=== PATIENT | female | born 1990 | race African-American/Black ===

== ENCOUNTER 2016-10-05 22:10 | Emergency (ER) | payer OTHER ==
--- NOTE | 2016-10-05 23:09 | ED Physician Documentation ---
History of Present Illness - Stated complaint Stated Complaint: DIZZINESS/FOOT PX - Chief complaint Chief Complaint: Neuro - History obtained from History obtained from: Patient - History of Present Illness Timing: Other (dizziness: yesterday toe lesion: 1 month) Pain level now: 8 Improved by: remaining still Worsened by: movement - Additonal information Additional information: patient has two c/o tonight: 1) dizziness that is distinctly worse with movement, standing from sitting/ lying position. Episodes started yesterday, last several minutes, associated with nausea 2) painful bump on right second toe x 1 month without trauma Patient recently returned from [place] (five days ago), called [facility] to make an appointment, has not heard back from them. Review of Systems Constitutional: denies: Fever Eyes: reports: Reviewed and negative Ears: denies: Loss of hearing, Ear pain, Drainage/discharge, Tinnitus/ringing Nose: reports: Reviewed and negative GI: reports: Nausea. 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 - Past Surgical History Past Surgical History: Yes General: Appendectomy /CONDUCTOR/ENGINEER: Other - Present Medications Home Medications: Ambulatory Orders Medication Instructions Recorded Confirmed Vitamin [Trinatal Rx 1] 1 each PO DAILY #30 tablet 10/25/14 05/13/15 Ondansetron HCl [Zofran] 4 mg PO DAILY 11/23/14 05/13/15 raNITIdine [Zantac] 150 mg PO DAILY #30 tablet 01/14/15 05/13/15 Albuterol [Ventolin Hfa] 2 puffs INH Q4H PRN #1 inhaler 02/05/15 05/13/15 Albuterol Sulfate [Ventolin Hfa] 2 puffs IH Q4H PRN #1 hfa.aer.ad 05/13/15 Dextromethorphan HBr [Robitussin] 15 mg PO Q6H PRN #20 capsule 05/13/15 Meclizine [Antivert] 25 mg PO Q6H PRN #20 tablet 10/05/16 - Allergies Allergies/Adverse Reactions: Allergies Allergy/AdvReac Type Severity Reaction Status Date / Time anesthesia AdvReac Nausea Uncoded 10/05/16 22:16 - Social History Does the pt smoke?: No Smoking Status: Never smoker Does the pt drink ETOH?: No Does the pt have substance abuse?: No - Immunizations Immunizations are current?: Yes - POLST Patient has POLST: No PD ED PE NORMAL - Vitals Vital signs reviewed: Yes - General General: Alert and oriented X 3, No acute distress, Well developed/nourished - HEENT HEENT: PERRL, EOMI, Other (no nystagmus) - Neck Neck: Supple, no meningeal sign - Neuro Neuro: Alert and oriented X 3, psychosocial rehabilitation counselor 2-12 intact, Normal speech PD ED PE EXPANDED - Extremities Feet visual: 1 - swelling (3-4mm diameter swelling, flesh-colored with central flaking. no fluctuance or discharge. mild tenderness. No erythema) Results - Vitals Vitals: Vital Signs - 24 hr 10/05/16 10/06/16 22:14 00:39 Temperature 36.1 C L Heart Rate 70 80 Respiratory 18 20 Rate Blood Pressure 104/62 104/56 L O2 Saturation 100 99 Oxygen O2 Source Room air - EKG (time done) No standard instances Rate: Rate (enter#) (73) Rhythm: NSR [place]: Normal Intervals: Normal [place], Other (incomplete RBBB) QRS: Normal Ischemia: Normal ST segments PD MEDICAL DECISION MAKING - ED course Complexity details: considered differential, d/w patient Departure - Departure Disposition: 01 Home, Self Care Clinical Impression: Vertigo, [place] of toe Condition: Good Instructions: ED Vertigo Unspecified Follow-Up: Teto Pimentel PA-C [Primary Care Provider] - (Call to arrange for next available appointment) Prescriptions: Meclizine [Antivert] 25 mg PO Q6H PRN #20 tablet PRN Reason: Vertigo Discharge Date/Time: 10/06/16 00:40
[2016-10-05] MEDS ORDERED: MECLIZINE 12.5 MG TABLET PO STA (23:26)
[2016-10-05] MEDS ORDERED: MECLIZINE 12.5 MG TABLET PO ONE (23:49)
[2016-10-06 00:39] VITALS: BP 104/56
== END 2016-10-06 00:40 | disposition home or self-care (01) ==
LOC: ED 22:10
DX: R42 Dizziness and giddiness (principal); L84 Corns and callosities; I45.10 Unspecified right bundle-branch block
CPT/HCPCS: 93005; 99283; A9270

== ENCOUNTER 2017-08-07 13:03 | Emergency (ER) | payer OTHER ==
[2017-08-07 14:16] LABS: BASOPHILS % (AUTO) 0.5 %; EOSINOPHILS # (AUTO) 0.3 10^3/uL (0.0-0.7); EOSINOPHILS % (AUTO) 2.9 %; HGB - HEMOGLOBIN 13.3 g/dL (12.0-16.0); LYMPHOCYTES # (AUTO) 1.7 10^3/uL (1.5-3.5); LYMPHOCYTES % (AUTO) 17.1 %; MEAN CORPUSCULAR HGB CONC 33.3 g/dL (32.0-36.0); MEAN PLATELET VOLUME 7.9 fL (7.9-10.8); MONOCYTES # (AUTO) 0.6 10^3/uL (0.0-1.0); MONOCYTES % (AUTO) 6.3 %; NEUTROPHILS # (AUTO) 7.1 10^3/uL (1.5-6.6); NEUTROPHILS % (AUTO) 73.2 %; PLT - PLATELET COUNT 313 10^3/uL (130-450); RED BLOOD COUNT 4.58 10^6/uL (4.20-5.40); RED CELL DISTRIBUTION WIDTH 14.1 % (12.0-15.0); WHITE BLOOD COUNT 9.7 x10^3/uL (4.8-10.8)
[2017-08-07 14:17] LABS: BILIRUBIN,URINE NEGATIVE (NEGATIVE); GLUCOSE, URINE (UA) NEGATIVE (NEGATIVE); KETONES,URINE (UA) NEGATIVE (NEGATIVE); LEUKOCYTE ESTERASE, URINE NEGATIVE (NEGATIVE); NITRITE,URINE NEGATIVE (NEGATIVE); OCCULT BLOOD,URINE NEGATIVE (NEGATIVE); PROTEIN,URINE NEGATIVE (NEGATIVE); UROBILINOGEN,URINE 0.2 (NORMAL) E.U./dL (NORMAL)
[2017-08-07 14:18] LABS: CLARITY,URINE CLEAR (CLEAR)
[2017-08-07 14:22] LABS: HCG UR QUAL POSITIVE
[2017-08-07 14:28] LABS: ALBUMIN 3.8 g/dL (3.2-5.5); ALBUMIN/GLOBULIN RATIO 1.1 (1.0-2.2); BILIRUBIN,TOTAL 0.7 mg/dL (0.2-1.0); CALCIUM 9.4 mg/dL (8.5-10.3); CREATININE 0.6 mg/dL (0.4-1.0); TOTAL PROTEIN 7.3 g/dL (6.7-8.2)
[2017-08-07] MEDS ORDERED: SODIUM CHLORIDE 0.9% 1,000 ML IV ONE (14:45)
--- NOTE | 2017-08-07 14:56 | ED Physician Documentation ---
PD HPI FEMALE - Stated complaint Stated Complaint: NAUSEA/VOMITTING/HEADACHE - Chief complaint Chief Complaint: Abd Pain - History obtained from History obtained from: Patient, Family - History of Present Illness Timing - onset: Today Timing - duration: Hours Timing - details: Gradual onset, Still present Associated symptoms: Pelvic pain. No: Vaginal bleeding, Vaginal discharge, Dysuria Contributing factors: Similar symptoms before: Diagnosis (early with hyperemesis) Recently seen: Not recently seen - Additional information Additional information: 27-year-old female who is had a positive test about 2 weeks ago has developed vomiting and nausea. She also has some pelvic cramping without bleeding. 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 - Past Surgical History Past Surgical History: Yes General: Appendectomy /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: Other - Present Medications Home Medications: Ambulatory Orders Medication Instructions Recorded Confirmed Vitamin [Trinatal Rx 1] 1 each PO DAILY #30 tablet 10/25/14 05/13/15 Ondansetron HCl [Zofran] 4 mg PO DAILY 11/23/14 05/13/15 raNITIdine [Zantac] 150 mg PO DAILY #30 tablet 01/14/15 05/13/15 Albuterol [Ventolin Hfa] 2 puffs INH Q4H PRN #1 inhaler 02/05/15 05/13/15 Albuterol Sulfate [Ventolin Hfa] 2 puffs IH Q4H PRN #1 hfa.aer.ad 05/13/15 Dextromethorphan HBr [Robitussin] 15 mg PO Q6H PRN #20 capsule 05/13/15 Meclizine [Antivert] 25 mg PO Q6H PRN #20 tablet 10/05/16 Ondansetron Odt [Zofran] 4 mg TL Q6H PRN #10 tablet 06/19/18 - Allergies Allergies/Adverse Reactions: Allergies Allergy/AdvReac Type Severity Reaction Status Date / Time anesthesia AdvReac Nausea Uncoded 10/05/16 22:16 - Social History Does the pt smoke?: No Smoking Status: Never smoker Does the pt drink ETOH?: No Does the pt have substance abuse?: No - Immunizations Immunizations are current?: Yes - POLST Patient has POLST: No PD ED PE NORMAL - Vitals Vital signs reviewed: Yes (normal ) - General General: Alert and oriented X 3, No acute distress, Well developed/nourished - HEENT HEENT: Atraumatic, PERRL, EOMI - Neck Neck: Supple, no meningeal sign - Cardiac Cardiac: RRR, No murmur - Respiratory Respiratory: No respiratory distress, Clear bilaterally - Abdomen Abdomen: Soft, Non tender - Back Back: No CVA TTP, No spinal TTP - Derm Derm: Normal color, Warm and dry, No rash - Extremities Extremities: No deformity, No edema - Neuro Neuro: Alert and oriented X 3, No motor deficit, No sensory deficit, Normal speech Eye Opening: Spontaneous Motor: Obeys Commands Verbal: Oriented GCS Score: 15 - Psych Psych: Normal mood, Normal affect Results - Vitals Vitals: Vital Signs - 24 hr 08/07/17 08/07/17 13:13 17:05 Temperature 36.6 C 36.4 C L Heart Rate 83 86 Respiratory 18 18 Rate Blood Pressure 101/69 83/58 L O2 Saturation 97 100 Oxygen O2 Source Room air - Labs Labs: Laboratory Tests 08/07/17 08/07/17 08/07/17 14:06 14:06 14:06 WBC 9.7 RBC 4.58 Hgb 13.3 Hct 39.8 MCV 87.0 MCH 29.0 MCHC 33.3 RDW 14.1 Plt Count 313 MPV 7.9 Neut # (Auto) 7.1 H Lymph # (Auto) 1.7 [place] # (Auto) 0.6 Eos # (Auto) 0.3 Baso # (Auto) 0.0 Absolute Nucleated RBC 0.00 Nucleated RBC % 0.0 Sodium 132 L Potassium 3.7 Chloride 101 Carbon Dioxide 27 Anion Gap 4.0 L BUN 11 Creatinine 0.6 Estimated GFR (MDRD) 148 Glucose 92 Calcium 9.4 Total Bilirubin 0.7 AST 20 ALT 13 Alkaline Phosphatase 37 L Total Protein 7.3 Albumin 3.8 Globulin 3.5 Albumin/Globulin Ratio 1.1 Lipase 35 HCG, Quant Urine Color YELLOW Urine Clarity CLEAR Urine pH 6.0 Ur Specific [place] 1.015 Urine Protein NEGATIVE Urine Glucose (UA) NEGATIVE Urine Ketones NEGATIVE Urine Occult Blood NEGATIVE Urine Nitrite NEGATIVE Urine Bilirubin NEGATIVE Urine Urobilinogen 0.2 (NORMAL) Ur Leukocyte Esterase NEGATIVE Ur Microscopic Review NOT INDICATED Urine Culture Comments NOT INDICATED Urine HCG, Qual 08/07/17 08/07/17 14:06 14:06 WBC RBC Hgb Hct MCV MCH MCHC RDW Plt Count MPV Neut # (Auto) Lymph # (Auto) [place] # (Auto) Eos # (Auto) Baso # (Auto) Absolute Nucleated RBC Nucleated RBC % Sodium Potassium Chloride Carbon Dioxide Anion Gap BUN Creatinine Estimated GFR (MDRD) Glucose Calcium Total Bilirubin AST ALT Alkaline Phosphatase Total Protein Albumin Globulin Albumin/Globulin Ratio Lipase HCG, Quant 90186.00 Urine Color Urine Clarity Urine pH Ur Specific [place] 1.015 Urine Protein Urine Glucose (UA) Urine Ketones Urine Occult Blood Urine Nitrite Urine Bilirubin Urine Urobilinogen Ur Leukocyte Esterase Ur Microscopic Review Urine Culture Comments Urine HCG, Qual POSITIVE Procedures - Bedside sono Bedside sono by EMP: Use of bedside ultrasound the pelvis is imaged and there is a gestational sac correlating with a gestational age of 6 weeks 4 days. I am not able to make out a pole or heart. - IVC sono (time) 1620 Bedside IVC sono: IVC measures (cm) (1.32), IVC collapsed c insp (cm) (complete) , Dehydration (est 1 liter deficit) PD MEDICAL DECISION MAKING - ED course Complexity details: reviewed old records, reviewed results, re-evaluated patient , considered differential, d/w patient, d/w family ED course: 27-year-old female in the early stages is developed nausea and vomiting. She did have a lot of problem with hyperemesis on her prior . This was treated with Zofran. Today she is administered a liter of fluid she is not nauseous at the time in the emergency department in no antiemetic is administered. She does appear to have a viable fetus and no evidence of ectopic with formal ultrasound. - Sepsis Event Vital Signs: Vital Signs - 24 hr 08/07/17 08/07/17 13:13 17:05 Temperature 36.6 C 36.4 C L Heart Rate 83 86 Respiratory 18 18 Rate Blood Pressure 101/69 83/58 L O2 Saturation 97 100 Oxygen O2 Source Room air Departure - Departure Disposition: 01 Home, Self Care Clinical Impression: Dehydration, Hyperemesis gravidarum Condition: Stable Instructions: ED Dehydration, ED Preg Morning Sickness Follow-Up: EDITH Fuller [Provider Group] Prescriptions: Ondansetron Odt [Zofran] 4 mg TL Q6H PRN #10 tablet PRN Reason: Nausea / Vomiting
--- NOTE | 2017-08-07 16:43 | Ultrasound Report ---
Procedure Date: 08/07/2017 Accession Number: [id number] / [id number] Procedure: US - OB First Trimester CPT Code: FULL RESULT: EXAM: FIRST TRIMESTER OBSTETRIC ULTRASOUND (Less than 11 weeks) EXAM DATE: 08/07/2017 04:20 PM. CLINICAL HISTORY: Early . Pelvic pain. LMP: 06/06/2017, 8-6/7 weeks, clinical TRACIE 03/13/2018. COMPARISONS: None. TECHNIQUE: Transabdominal and transvaginal ultrasound examination with static image documentation. ASSESSMENT: Gestational Sac: Single intrauterine. Mean gestational sac diameter: 12.7 mm = 5-3/7 weeks. Embryo: CRL (crown-rump length) 2 mm = 5-5/7 weeks, ultrasound TRACIE 04/04/2018. Cardiac activity: 116 beats per minute. Yolk sac: 2.3 mm. Amniotic fluid: Grossly unremarkable for early gestational age. Placenta position: Indeterminate at this time. Other: No perigestational fluid collection demonstrated. MATERNAL STRUCTURES: Uterus: Anteverted. No focal abnormality identified. Cervix: Closed. Right Ovary: 5.2 x 3.6 x 4.1 cm, volume 40.1 cc. A simple unilocular cyst measures 3.5 x 3.2 x 3.8 cm. Stromal color Doppler signal present. Left Ovary: 3.1 x 1.8 x 2.1 cm, volume 6.1 cc. Unremarkable. Free Fluid: Small simple fluid in posterior cul-de-sac. Other: No adnexal lesion identified. IMPRESSION: 1. Single living IUP at 5-5/7 weeks by ultrasound for assigned TRACIE of 04/04/2018, discordant from predicted based on the reported LMP. 2. A 3.8 cm simple right ovarian cyst. 3. Unremarkable left ovary. 4. Nonspecific small dependent free fluid. 5. No adnexal mass identified. RADIA
[2017-08-07 17:05] VITALS: BP 83/58
== END 2017-08-07 17:20 | disposition home or self-care (01) ==
LOC: ED 13:03
DX: O21.1 Hyperemesis gravidarum with metabolic disturbance (principal); Z3A.01 Less than 8 weeks gestation of pregnancy; J45.909 Unspecified asthma, uncomplicated
CPT/HCPCS: 36415; 76801; 76817; 80053; 81001; 81003; 81025; 83690; 84702; 85025; 87086; 96360; 96361; 99283; 99284

== ENCOUNTER 2017-08-23 10:18 | Emergency (ER) | payer OTHER ==
[2017-08-23 10:29] VITALS: BP 105/69
[2017-08-23] MEDS ORDERED: SODIUM CHLORIDE 0.9% 1,000 ML IV ONE (12:36)
[2017-08-23] MEDS ORDERED: METOCLOPRAMIDE 10 MG/2 ML VIAL IVP STA (12:36)
--- NOTE | 2017-08-23 12:38 | ED Physician Documentation ---
PD HPI ABD PAIN - Stated complaint Stated Complaint: VOMITING - Chief complaint Chief Complaint: Abd Pain - History obtained from History obtained from: Patient - History of Present Illness Timing - onset: Other (This is a at 8 weeks gestation who presents with 2 days of uncontrolled vomiting despite taking B6 at home with some weakness lower abdominal cramps without urinary complaints or bleeding.) Review of Systems Ten Systems: 10 systems reviewed and negative Constitutional: reports: Fatigue. denies: Fever, Chills Cardiac: denies: Chest pain / pressure, Palpitations Respiratory: denies: Dyspnea, Cough GI: reports: Abdominal Pain, Nausea, Vomiting. 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 - Past Surgical History Past Surgical History: Yes General: Appendectomy /ORTHODONTIC TREATMENT COORDINATOR: Other - Present Medications Home Medications: Ambulatory Orders Medication Instructions Recorded Confirmed Vitamin [Trinatal Rx 1] 1 each PO DAILY #30 tablet 10/25/14 05/13/15 Ondansetron HCl [Zofran] 4 mg PO DAILY 11/23/14 05/13/15 raNITIdine [Zantac] 150 mg PO DAILY #30 tablet 01/14/15 05/13/15 Albuterol [Ventolin Hfa] 2 puffs INH Q4H PRN #1 inhaler 02/05/15 05/13/15 Albuterol Sulfate [Ventolin Hfa] 2 puffs IH Q4H PRN #1 hfa.aer.ad 05/13/15 Dextromethorphan HBr [Robitussin] 15 mg PO Q6H PRN #20 capsule 05/13/15 Meclizine [Antivert] 25 mg PO Q6H PRN #20 tablet 10/05/16 Ondansetron Odt [Zofran] 4 mg TL Q6H PRN #10 tablet 08/07/17 - Allergies Allergies/Adverse Reactions: Allergies Allergy/AdvReac Type Severity Reaction Status Date / Time anesthesia AdvReac Nausea Uncoded 10/05/16 22:16 - Social History Does the pt smoke?: No Smoking Status: Never smoker Does the pt drink ETOH?: No Does the pt have substance abuse?: No - Immunizations Immunizations are current?: Yes - POLST Patient has POLST: No PD ED PE NORMAL - Vitals Vital signs reviewed: Yes - General General: Alert and oriented X 3, No acute distress - Cardiac Cardiac: RRR, No murmur - Respiratory Respiratory: No respiratory distress, Clear bilaterally - Abdomen Abdomen: Normal bowel sounds, Soft, Non tender - Female Female : Other (Bedside ultrasound demonstrates single live intrauterine with a heart rate 167.) - Neuro Neuro: Alert and oriented X 3, Normal speech Results - Vitals Vitals: Vital Signs - 24 hr 08/23/17 10:25 Temperature 36.6 C Heart Rate 85 Respiratory 16 Rate Blood Pressure 105/69 O2 Saturation 100 Oxygen O2 Source Room air - Labs Labs: Laboratory Tests 08/23/17 12:50 Urine Color YELLOW Urine Clarity CLEAR Urine pH 8.0 H Ur Specific [place] 1.015 Urine Protein NEGATIVE Urine Glucose (UA) NEGATIVE Urine Ketones NEGATIVE Urine Occult Blood NEGATIVE Urine Nitrite NEGATIVE Urine Bilirubin NEGATIVE Urine Urobilinogen 0.2 (NORMAL) Ur Leukocyte Esterase NEGATIVE Ur Microscopic Review NOT INDICATED Urine Culture Comments NOT INDICATED PD MEDICAL DECISION MAKING - ED course ED course: I am told by the nurse that the patient eloped without completing treatment after my initial evaluation. - Sepsis Event Vital Signs: Vital Signs - 24 hr 08/23/17 10:25 Temperature 36.6 C Heart Rate 85 Respiratory 16 Rate Blood Pressure 105/69 O2 Saturation 100 Oxygen O2 Source Room air Departure - Departure Disposition: ED [place] Clinical Impression: Hyperemesis gravidarum Condition: Stable
[2017-08-23 13:07] LABS: BILIRUBIN,URINE NEGATIVE (NEGATIVE); GLUCOSE, URINE (UA) NEGATIVE (NEGATIVE); KETONES,URINE (UA) NEGATIVE (NEGATIVE); LEUKOCYTE ESTERASE, URINE NEGATIVE (NEGATIVE); NITRITE,URINE NEGATIVE (NEGATIVE); OCCULT BLOOD,URINE NEGATIVE (NEGATIVE); PROTEIN,URINE NEGATIVE (NEGATIVE); UROBILINOGEN,URINE 0.2 (NORMAL) E.U./dL (NORMAL)
[2017-08-23 13:14] LABS: CLARITY,URINE CLOUDY (CLEAR)
[2017-08-23 13:15] LABS: AMORPHOUS SEDIMENT,UR Few /LPF; BACTERIA,URINE Many /HPF (None Seen); MUCUS,URINE Few Strands; RBC,URINE 0-5 /HPF (0-5); SQUAMOUS EPITHELIAL CELL,UR MANY Squamous (<= Few)
== END 2017-08-23 13:21 | disposition left against medical advice (07) ==
LOC: ED 10:18
DX: Z53.21 Procedure and treatment not carried out due to patient leaving prior to being seen by health care provider (principal)
CPT/HCPCS: 81001; J2765; 80053; 81003; 83690; 87086; 99282

== ENCOUNTER 2018-02-07 10:21 | Emergency (ER) | payer OTHER ==
[2018-02-07 10:33] VITALS: BP 103/53
[2018-02-07 10:54] LABS: BILIRUBIN,URINE NEGATIVE (NEGATIVE); GLUCOSE, URINE (UA) NEGATIVE (NEGATIVE); KETONES,URINE (UA) NEGATIVE (NEGATIVE); LEUKOCYTE ESTERASE, URINE NEGATIVE (NEGATIVE); NITRITE,URINE NEGATIVE (NEGATIVE); OCCULT BLOOD,URINE TRACE-LYSE (NEGATIVE); PH,URINE 6.5 PH (5.0-7.5); PROTEIN,URINE NEGATIVE (NEGATIVE); UROBILINOGEN,URINE 0.2 (NORMAL) E.U./dL (NORMAL)
[2018-02-07 11:00] LABS: CLARITY,URINE CLEAR (CLEAR); HCG UR QUAL NEGATIVE
--- NOTE | 2018-02-07 11:30 | ED Physician Documentation ---
PD HPI ABD PAIN - Stated complaint Stated Complaint: ABD PX - Chief complaint Chief Complaint: Abd Pain - History obtained from History obtained from: Patient - History of Present Illness Timing - onset: How many days ago (2) Timing - duration: Days (2) Timing - details: Gradual onset, Intermittant Pain level max: 7 Pain level now: 0 Quality: Other (burning with urination) Location: Suprapubic Improved by: Other (nothing) Worsened by: Other (urinating) Associated symptoms: Dysuria. No: Fever, Nausea, Vomiting, Hematemesis, Diarrhea, Constipation, Melena, Hematochezia, Hematuria, Dizzy, Loss of appetite, Vaginal bleeding, Vaginal dc Similar symptoms before: Has not had sx before Recently seen: Not recently seen - Additional information Additional information: 28-year-old female with history of asthma here complaining of burning pain with urination in the past 2 days. Associated with some pressure. Denies any associated fever, nausea, vomiting, diarrhea nor constipation. States she has normal vaginal discharge and not more than usual. States had been drinking all weekend and does not drink water. States has one sex partner but not using condoms all the time. Denies any dyspareunia. Denies any trauma, travel, recent illness or sick contact. Review of Systems Ten Systems: 10 systems reviewed and negative Constitutional: denies: Fever, Chills GI: reports: Abdominal Pain. denies: Abdominal Swelling, Nausea, Vomiting, Constipation, Diarrhea, Hematemesis, Bloody / black stool : reports: Dysuria, Frequency, LMP (Normal last month). 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: Yes - POLST Patient has POLST: No PD ED PE NORMAL - Vitals Vital signs reviewed: Yes - General General: Alert and oriented X 3, No acute distress, Well developed/nourished - HEENT HEENT: Moist mucous membranes - Neck Neck: Supple, no meningeal sign - Cardiac Cardiac: RRR, No murmur - Respiratory Respiratory: Clear bilaterally - Abdomen Abdomen: Normal bowel sounds, Soft, Non tender, Non distended, No organomegaly - Back Back: No CVA TTP - Derm Derm: Warm and dry - Extremities Extremities: No deformity - Neuro Neuro: Alert and oriented X 3 - Psych Psych: Normal mood, Normal affect Results - Vitals Vitals: Vital Signs - 24 hr 02/07/18 10:30 Temperature 36.3 C L Heart Rate 74 Respiratory 18 Rate Blood Pressure 103/53 L O2 Saturation 99 Oxygen O2 Source Room air - Labs Labs: Laboratory Tests 02/07/18 10:45 Urine Color YELLOW Urine Clarity CLEAR Urine pH 6.5 Ur Specific [place] 1.020 Urine Protein NEGATIVE Urine Glucose (UA) NEGATIVE Urine Ketones NEGATIVE Urine Occult Blood TRACE-LYSE Urine Nitrite NEGATIVE Urine Bilirubin NEGATIVE Urine Urobilinogen 0.2 (NORMAL) Ur Leukocyte Esterase NEGATIVE Ur Microscopic Review NOT INDICATED Urine Culture Comments NOT INDICATED Urine HCG, Qual NEGATIVE PD MEDICAL DECISION MAKING - ED course Complexity details: reviewed results, considered differential (UTI, STD, ,Mittelschmerz), d/w patient ED course: Patient informed of test results. 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 Inform we will send her urine for GC chlamydia but results will be pending for a day or 2. Instructed to drink 6-8 glasses of water a day. We will discharged on Pyridium. Departure - Departure Disposition: 01 Home, Self Care Clinical Impression: Dysuria Abdominal pain Qualifiers: Abdominal location: unspecified location Qualified Code(s): R10.9 - Unspecified abdominal pain Condition: Good Instructions: ED Dysuria Uncertain Cause Prescriptions: Phenazopyridine HCl [Pyridium] 200 mg PO TID PRN #6 tablet PRN Reason: dysuria Comments: Drinks 6-8 glasses of water a day. Take the Pyridium for as prescribed. Urine cultures for GC chlamydia are pending. 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 Make sure you use condoms. If worse return to the emergency room.
== END 2018-02-07 11:41 | disposition home or self-care (01) ==
LOC: ED 10:21
DX: R30.0 Dysuria (principal); R10.9 Unspecified abdominal pain
CPT/HCPCS: 81001; 81003; 81025; 87086; 87491; 87591; 99283

== ENCOUNTER 2018-03-22 22:47 | Emergency (ER) | payer OTHER ==
[2018-03-22 22:56] VITALS: BP 104/43
--- NOTE | 2018-03-22 23:32 | ED Physician Documentation ---
PD HPI HEENT - Stated complaint Stated Complaint: THROAT PX - Chief complaint Chief Complaint: Heent - History obtained from History obtained from: Patient - History of Present Illness Timing - onset: How many weeks ago (1) Timing - duration: Weeks (1) Timing - details: Gradual onset Pain level max: 6 Pain level now: 5 Location: Throat Improves: Nothing Worsens: Swalllowing Associated symptoms: No: Fever, Congestion, Rhinorrhea, Trismus, Unable to swallow, Swollen nodes, Facial swelling, Headache, Cough Recently seen: Not recently seen - Additional information Additional information: Patient with a "cold sore" on the back of her throat for the past week, states getting worse. No fevers. Worse with swallowing, nothing makes it better. No trismus. 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 HEENT: None Psych: None Musculoskeletal: None Derm: None - Past Surgical History Past Surgical History: Yes General: Appendectomy /AVIONICS TECHNICIAN: Other - Present Medications Home Medications: Ambulatory Orders Medication Instructions Recorded Confirmed Phenazopyridine HCl [Pyridium] 200 mg PO TID PRN #6 tablet 02/07/18 Valacyclovir HCl [Valtrex] 2,000 mg PO Q12H #4 tablet 03/22/18 - Allergies Allergies/Adverse Reactions: Allergies Allergy/AdvReac Type Severity Reaction Status Date / Time anesthesia AdvReac Nausea Uncoded 02/07/18 10:33 - Social History Does the pt smoke?: No Smoking Status: Never smoker Does the pt drink ETOH?: No Does the pt have substance abuse?: No - Immunizations Immunizations are current?: Yes - POLST Patient has POLST: No PD ED PE NORMAL - Vitals Vital signs reviewed: Yes - General General: Alert and oriented X 3, No acute distress - HEENT HEENT: Moist mucous membranes, Other (Ulcerated lesion to the left tonsil and a smaller ulcerated lesion on the right tonsil. No exudate. There is mild posterior oropharyngeal erythema. Uvula is midline. Normal phonation. No trismus) - Neck Neck: Supple, no meningeal sign, No adenopathy - Cardiac Cardiac: RRR, Strong equal pulses - Respiratory Respiratory: No respiratory distress, Clear bilaterally - Derm Derm: Warm and dry - Neuro Neuro: Alert and oriented X 3 Results - Vitals Vitals: Vital Signs - 24 hr 03/22/18 03/23/18 22:53 00:10 Temperature 36 C L Heart Rate 79 Respiratory 18 17 Rate Blood Pressure 104/43 L O2 Saturation 99 Oxygen O2 Source Room air - Labs Labs: Laboratory Tests 03/22/18 23:17 Group A Strep Rapid Negative PD MEDICAL DECISION MAKING - ED course Complexity details: reviewed results, considered differential, d/w patient ED course: 28-year-old female with what appears to be herpes simplex of the throat. Will place on Valtrex for home. Rapid strep is negative. She is well-appearing, nontoxic. Tolerating p.o. without difficulty here. Patient counseled regarding signs and symptoms for which I believe and urgent re-evaluation would be necessary. Patient with good understanding of and agreement to plan and is comfortable going home at this time This document was made in part using voice recognition software. While efforts are made to proofread this document, sound alike and grammatical errors may occur. Departure - Departure Disposition: 01 Home, Self Care Clinical Impression: Herpes simplex Condition: Good Instructions: ED Herpes Simplex Virus Type 1 Follow-Up: SKY FRANCIS MD [Primary Care Provider] - As Needed Prescriptions: Valacyclovir HCl [Valtrex] 2,000 mg PO Q12H #4 tablet Comments: Take the Valtrex as prescribed. This will help heal the sore quickly. Return if you worsen. Discharge Date/Time: 03/23/18 00:10
[2018-03-26 13:31] LABS: HSV 1 IGG TYPE SPECIFIC AB >58.00 index; HSV 2 IGG TYPE SPECIFIC AB <0.90 index
== END 2018-03-23 00:10 | disposition home or self-care (01) ==
LOC: ED 22:47
DX: B00.9 Herpesviral infection, unspecified (principal)
CPT/HCPCS: 36415; 86695; 86696; 87070; 87430; 99283

== ENCOUNTER 2018-06-24 19:20 | Emergency (ER) | payer OTHER ==
[2018-06-24 19:50] LABS: BILIRUBIN,URINE NEGATIVE (NEGATIVE); GLUCOSE, URINE (UA) NEGATIVE (NEGATIVE); KETONES,URINE (UA) NEGATIVE (NEGATIVE); LEUKOCYTE ESTERASE, URINE NEGATIVE (NEGATIVE); NITRITE,URINE NEGATIVE (NEGATIVE); OCCULT BLOOD,URINE SMALL (NEGATIVE); PH,URINE 7.5 PH (5.0-7.5); PROTEIN,URINE NEGATIVE (NEGATIVE); UROBILINOGEN,URINE 0.2 (NORMAL) E.U./dL (NORMAL)
[2018-06-24 19:52] LABS: CLARITY,URINE CLEAR (CLEAR); HCG UR QUAL NEGATIVE
[2018-06-24 19:59] LABS: BACTERIA,URINE None Seen /HPF (None Seen); RBC,URINE 0-5 /HPF (0-5); SQUAMOUS EPITHELIAL CELL,UR FEW Squamous (<= Few)
--- NOTE | 2018-06-24 20:41 | ED Physician Documentation ---
PD HPI ABD PAIN - Stated complaint Stated Complaint: FEMALE /ABD PX - Chief complaint Chief Complaint: Abd Pain - History obtained from History obtained from: Patient - History of Present Illness Timing - onset: Other (2 days of abd cramping and bleeding, after sex. Bleeding gone but still with mild spotting. LMP 2 weeks ago.) Review of Systems Ten Systems: 10 systems reviewed and negative Constitutional: denies: Fever, Chills GI: reports: Abdominal Pain. 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: Other - Present Medications Home Medications: Ambulatory Orders Medication Instructions Recorded Confirmed Phenazopyridine HCl [Pyridium] 200 mg PO TID PRN #6 tablet 02/07/18 Valacyclovir HCl [Valtrex] 2,000 mg PO Q12H #4 tablet 03/22/18 Norgestimate-Ethinyl Estradiol 1 each PO TID #1 packet 06/24/18 [Ortho Tri-Cyclen 28 Tablet] - Allergies Allergies/Adverse Reactions: Allergies Allergy/AdvReac Type Severity Reaction Status Date / Time bee venom protein (honey bee) Allergy Hives Verified 06/24/18 19:37 anesthesia AdvReac Nausea Uncoded 02/07/18 10:33 - Social History Does the pt smoke?: No Smoking Status: Never smoker Does the pt drink ETOH?: No Does the pt have substance abuse?: No - Immunizations Immunizations are current?: Yes - POLST Patient has POLST: No PD ED PE NORMAL - Vitals Vital signs reviewed: Yes - General General: Alert and oriented X 3, No acute distress - Abdomen Abdomen: Normal bowel sounds, Soft, Non tender - Female Female : Physical Testing Supervisor present (Cecilia PAN), Other (scant blood, no bimanual TTP) - Back Back: No CVA TTP, No spinal TTP - Derm Derm: Normal color, Warm and dry - Neuro Neuro: Alert and oriented X 3, Normal speech Results - Vitals Vitals: Vital Signs - 24 hr 06/24/18 06/24/18 06/24/18 19:35 20:38 23:09 Temperature 36.7 C 36.8 C Heart Rate 83 65 68 Respiratory 18 16 14 Rate Blood Pressure 109/68 102/65 104/69 O2 Saturation 100 97 Oxygen O2 Source Room air - Labs Labs: Microbiology 06/24/18 21:10 Wet Prep - Final Vaginal Laboratory Tests 06/24/18 19:40 Urine Color YELLOW Urine Clarity CLEAR Urine pH 7.5 Ur Specific [place] 1.010 Urine Protein NEGATIVE Urine Glucose (UA) NEGATIVE Urine Ketones NEGATIVE Urine Occult Blood SMALL H Urine Nitrite NEGATIVE Urine Bilirubin NEGATIVE Urine Urobilinogen 0.2 (NORMAL) Ur Leukocyte Esterase NEGATIVE Urine RBC 0-5 Urine WBC 0-3 Ur Squamous Epith Cells FEW Squamous Urine Bacteria None Seen Ur Microscopic Review INDICATED Urine Culture Comments NOT INDICATED Urine HCG, Qual NEGATIVE - Rads (name of study) PELVIC SONO Radiology: EMP read contemporaneously (NEGATIVE) PD MEDICAL DECISION MAKING - ED course ED course: 28yo F with DUB p sex. No tenderness on abd exam or pelvic exam. Sono neg. Tx with dose OCP. Departure - Departure Disposition: 01 Home, Self Care Clinical Impression: DUB (dysfunctional uterine bleeding) Condition: Good Record reviewed to determine appropriate education?: Yes Instructions: ED Bleed Irregular Vaginal Prescriptions: Norgestimate-Ethinyl Estradiol [Ortho Tri-Cyclen 28 Tablet] 1 each PO TID #1 packet Comments: Take the control 3 times a day until bleeding gone. Return if worse. Followup with your physician within 1 week Discharge Date/Time: 06/24/18 23:10
[2018-06-24 23:10] VITALS: BP 104/69
--- NOTE | 2018-06-24 23:17 | Ultrasound Report ---
Reason: L pelvic pain, mid cycle bleeding Procedure Date: 06/24/2018 Accession Number: [id number] / [id number] Procedure: US - Pelvic w/Transvag+Doppler Comp CPT Code: FULL RESULT: EXAM: PELVIC ULTRASOUND WITH DOPPLERS CLINICAL HISTORY: Pelvic pain, midcycle bleeding. COMPARISON: None. TECHNIQUE: Real-time transabdominal imaging performed to identify the uterus and adnexa and as an overview of other pelvic structures, followed by transvaginal imaging for better assessment of the endometrium and adnexa, with static image documentation. Color flow imaging and Doppler spectral analysis was performed to evaluate blood flow to the ovaries given pelvic pain and clinical concern for ovarian torsion. FINDINGS: Uterus: 7.5 x 4.1 x 3.6 cm, volume 57.8 cc. Anteverted position. Normal overall size and echotexture. Masses: None. Endometrium: 7.6 mm. Normal. Cervix: Unremarkable. Right Ovary: 3.9 x 2.2 x 2.4 cm, volume 10.7 cc. Normal echotexture. Arterial and venous blood flow are present. PSV 11.9 cm/sec. RI 0.55. Adnexa are unremarkable. Left Ovary: 3.0 x 2.3 x 2.8 cm, volume 10.1 cc. Normal echotexture. Arterial and venous blood flow are present. PSV 9.4 cm/sec. RI 0.61. Adnexa are unremarkable. Free Fluid: Trace. Other: None. IMPRESSION: 1. Normal pelvic ultrasound. 2. Arterial and venous blood flow are present to the ovaries bilaterally. RADIA
== END 2018-06-24 23:10 | disposition home or self-care (01) ==
LOC: ED 19:20
DX: N93.8 Other specified abnormal uterine and vaginal bleeding (principal)
CPT/HCPCS: 76830; 76856; 81001; 81003; 81025; 87086; 87210; 87491; 87591; 93975; 99283